=== PATIENT | female | born 1970 | race Caucasian/White ===

== ENCOUNTER 2023-01-16 16:34 | Emergency (ER) | payer BC, MEDICAID ==
[~2023-01-16] VITALS: Ht 167.6 cm; Wt 86.0 kg
[2023-01-16 16:42] VITALS: O2SAT 99
[2023-01-16 17:20] LABS: BASOPHILS % 0.5 % (0.0-2.0); HEMATOCRIT. 32.3 % (36.0-48.0); HEMOGLOBIN. 10.5 g/dL (12.0-16.0); LYMPHOCYTES % 10.6 % (20.0-50.0); MEAN CORPUSCULAR HGB CONC 32.6 g/dL (31.0-37.0); MEAN PLATELET VOLUME 8.6 fl (7.4-10.4); MONOCYTES % 2.7 % (2.0-8.0); NEUTROPHILS % 86.2 % (40.0-76.0); PLATELET 237 x1000/uL (130-400); RED BLOOD CELL COUNT 3.51 mill/uL (4.2-5.4); RED CELL DISTRIBUTION WIDTH 14.4 % (11.6-14.6); WHITE BLOOD COUNT 9.5 x1000/uL (4.5-11.0)
[2023-01-16 17:36] LABS: CHLORIDE 110 mEq/L (98-107); INDEX HEMOLYSI 1 (1-3); INDEX ICTERIC 1 (1-4); INDEX LIPEMIC 1 (1-3); POTASSIUM 3.8 mEq/L (3.5-5.1); SODIUM 137 mEq/L (136-145)
[2023-01-16 17:45] LABS: ALANINE AMINOTRANSFERASE 34 IU/L (13-61); ALBUMIN 3.4 g/dL (3.4-5.0); CALCIUM 9.4 mg/dL (8.5-10.1); CARBON DIOXIDE 18 mEq/L (21-32); GLUCOSE 133 mg/dL (70-105); UREA NITROGEN BLOOD 53 mg/dL (7-21)
[2023-01-16 17:48] LABS: ASPARTATE AMINOTRANSFERASE 21 IU/L (15-37); BILIRUBIN TOTAL 0.5 mg/dL (0.1-1.0); CREATININE 1.6 mg/dL (0.6-1.3); PROTEIN TOTAL 8.8 g/dL (6.0-8.3)
[2023-01-16 19:13] LABS: CLARITY URINE TURBID (CLEAR); COLOR URINE YELLOW (YELLOW); GLUCOSE URINE 2+ (NEGATIVE); KETONES URINE TRACE (NEGATIVE); LEUKOCYTE ESTERASE URINE NEGATIVE (NEGATIVE); NITRITE URINE NEGATIVE (NEGATIVE); OCCULT BLOOD URINE 1+ (NEGATIVE); PROTEIN URINE 3+ (NEGATIVE); SPECIFIC GRAVITY URINE 1.014 (1.005-1.030); UROBILINOGEN URINE 0.2 E.U./dL (0.2-1.0)
[2023-01-16 19:19] LABS: SQUAMOUS EPITHELIAL CELL URINE 1+ /lpf (RARE/1+); YEAST URINE NONE SEEN
[2023-01-16 20:16] LABS: BACTERIA URINE 4+
[2023-01-16 20:17] LABS: AMORPHOUS SEDIMENT URINE 1+ /lpf; WBC URINE 0-2 /hpf (0-2)
[2023-01-16 20:45] VITALS: BP 183/86
[2023-01-16] MEDS ORDERED: KETOROLAC 60MG/2ML VIAL IM ONE (20:45)
[2023-01-16] MEDS ORDERED: KETOROLAC 60MG/2ML VIAL IM NR (20:45)
[2023-01-16] MEDS ORDERED: ONDANSETRON 4MG ODT PO NR (20:45)
[2023-01-16] MEDS ORDERED: ACETAMINOPHEN 325MG TABLET PO ONE (20:45)
[2023-01-16] MEDS ORDERED: CEFTRIAXONE SODIUM 1 G/VIAL IM ONE (20:45)
[2023-01-16] MEDS ORDERED: ONDANSETRON 4MG ODT PO ONE (20:45)
[2023-01-16] MEDS ORDERED: CEFTRIAXONE SODIUM 1 G/VIAL IM NR (20:45)
[2023-01-16] MEDS ORDERED: ACETAMINOPHEN 325MG TABLET PO NR (20:45)
[2023-01-16] MEDS ORDERED: TOPUD PO (23:06)
[2023-01-16] MEDS ORDERED: CEFP200T13 MT (23:06)
[2023-01-17] MEDS ORDERED: IBUP-2028 MT (01:13)
[2023-01-17] MEDS ORDERED: MORP15TA67 MT (01:13)
[2023-01-17 01:37] VITALS: PULSE 90; RESP 20; TEMP 98
== END 2023-01-17 01:39 | disposition home or self-care (01) ==
LOC: ER 21:36
DX: R10.2 Pelvic and perineal pain (principal); E11.9 Type 2 diabetes mellitus without complications; I10 Essential (primary) hypertension; Z98.890 Other specified postprocedural states
CPT/HCPCS: 80053; 81003; 81025; 83690; 85025; 36415; 74176; 76830; 76856; 96372; 99285; Q0162; J0696; J1885; Z7610 ×2